=== PATIENT | male | born 1965 | race Caucasian/White ===

== ENCOUNTER 2017-07-13 06:11 | Day surgery (SDC) | payer OTHER ==
[~2017-07-13] VITALS: Ht 177.8 cm; Wt 87.6 kg
[2017-07-13 06:39] VITALS: BP 117/81; PULSE 70; TEMP 97.1
[2017-07-13] MEDS ORDERED: NICODERM C21 MG/PATC TD (06:43)
[2017-07-13] MEDS ORDERED: ALEVE 220MG220 MG PO (06:43)
[2017-07-13 07:51] VITALS: BP 122/85; PULSE 65; TEMP 97.4
[2017-07-13 08:00] VITALS: BP 117/84; PULSE 81
[2017-07-13 08:15] VITALS: BP 119/79; PULSE 70
== END 2017-07-13 08:30 | disposition home or self-care (01) ==
LOC: SDCO 06:11
DX: Z12.11 Encounter for screening for malignant neoplasm of colon (principal); K62.1 Rectal polyp; Z83.71 Family history of colonic polyps
CPT/HCPCS: J2250; J3010; J7030

== ENCOUNTER → 2022-06-13 | Outpatient (CLI) | payer OTHER ==
[~2022-06-13] MED LIST: ALEVE 220MG220 MG PO; NICODERM C21 MG/PATC TD
== END ==
LOC: MHCPAIN 14:15
DX: M47.896 Other spondylosis, lumbar region (principal); M54.16 Radiculopathy, lumbar region
CPT/HCPCS: G0463